=== PATIENT | male | born 1960 | race Hispanic/Latino ===

== ENCOUNTER 2022-04-16 00:21 | Emergency (ER) | payer SELFPAY ==
[2022-04-16] MEDS ORDERED: ONDANSETRON 4 MG/2 ML INJ IV ONE ×2 (01:47→05:28)
[2022-04-16] MEDS ORDERED: SODIUM CHLORIDE 0.9% 1000 ML 1,000 ML IV ONE ×2 (01:47→01:48)
[2022-04-16 03:05] LABS: Basophils % (Auto) 0.5 % (0.0-1.8); Eosinophils # (Auto) 0.1 K/mm3 (0.0-0.4); Eosinophils % (Auto) 1.8 % (0.0-4.3); Hematocrit 36.9 % (35.5-45.6); Hemoglobin 11.9 gm/dl (11.8-15.2); Lymphocytes # (Auto) 1.3 K/mm3 (1.2-5.4); Lymphocytes % (Auto) 29.4 % (13.4-35.0); Mean Corpuscular HGB Conc 32 % (32-34); Mean Corpuscular Volume 85 fl (84-94); Monocytes # (Auto) 0.2 K/mm3 (0.0-0.8); Monocytes % (Auto) 5.3 % (0.0-7.3); Platelet Count 164 K/mm3 (140-440); Red Blood Count 4.33 M/mm3 (3.65-5.03)
[2022-04-16 03:15] LABS: Red Cell Distribution Width 22.1 % (13.2-15.2)
[2022-04-16 03:23] LABS: Alanine Aminotransferase 67 units/L (7-56); Albumin 4.6 g/dL (3.9-5); BUN/Creatinine Ratio 15; Blood Urea Nitrogen 12 mg/dL (9-20); Calcium 8.8 mg/dL (8.4-10.2); Hemolysis Index 79
--- NOTE | 2022-04-16 03:26 | XRay Report ---
ABDOMEN, SINGLE VIEW INDICATION / CLINICAL INFORMATION: N/V. COMPARISON: None available. FINDINGS: The bowel gas pattern is normal. No abnormally dilated loops of bowel are present. Gas is present wit hin the rectum. Small amount of oral contrast is seen throughout the transverse colon, incidentally n oted. Visualized lung bases are clear. No acute osseous abnormality noted. IMPRESSION: No acute finding. Signer Name: Maria A Prince MD Signed: 04/16/2022 3:22 AM Workstation Name: [id number]
[2022-04-16] MEDS ORDERED: MAGNESIUM SULFATE 2 GM/50 ML BAG IV ONE (04:06)
[2022-04-16] MEDS ORDERED: chlordiazePOXIDE 25 MG CAP PO ONE ×2 (04:36→06:00)
--- NOTE | 2022-04-16 05:14 | Emergency Department Report ---
<BROISHANDEIDRE Dinh - Last Filed: 04/16/22 05:58> ED General Adult HPI - General Chief complaint: Alcohol Stated complaint: EMESIS/WITHDRAWALS Time Seen by Provider: 04/16/22 01:46 Source: patient Mode of arrival: Ambulatory Limitations: No Limitations - History of Present Illness Initial comments: This is a 61-year-old homeless male with medical history of hypertension and also alcoholism came in today with concerns of generalized abdominal discomfort and feeling nausea with vomiting for the past 9 days said that he has been v omiting and not being able to keep anything down. Patient stated his last alcohol intake was yesterday. Patient endorsed feeling very anxious. Patient denies any other symptoms. Patient denies fever chill night sweat dizziness blurred vision lightheadedness headache tinnitus ear pain runny nose sore throat loss of taste loss of smell chest pain palpitation short of breath cough diarrhea constipation joint pain muscle pain new rash and heat or cold intolerance. - Related Data Allergies Allergy/AdvReac Type Severity Reaction Status Date / Time No Known Allergies Allergy Unverified 04/16/22 01:05 ED Review of Systems Comment: All other systems reviewed and negative Constitutional: no symptoms reported, see HPI Eyes: as per HPI ENT: as per HPI Respiratory: no symptoms reported, see HPI Cardiovascular: as per HPI Endocrine: no symptoms reported, see HPI Gastrointestinal: as per HPI, abdominal pain, nausea, vomiting. denies: diarrhea, constipation, hematemesis, melena, hematochezia Genitourinary: as per HPI Musculoskeletal: as per HPI Neurological: as per HPI Psychiatric: as per HPI Hematological/Lymphatic: as per HPI ED Past Medical Hx - Past Medical History Previous Medical History?: Yes Hx Hypertension: Yes Additional medical history: Alcoholism - Surgical History Past Surgical History?: No - Social History Smoking Status: Never Smoker Substance Use Type: None ED Physical Exam - General Limitations: No Limitations General appearance: alert, in no apparent distress - Head Head exam: Present: atraumatic, normocephalic, normal inspection - Eye Eye exam: Present: normal appearance, PERRL, EOMI Pupils: Present: normal accommodation - ENT ENT exam: Present: normal exam, mucous membranes moist - Neck Neck exam: Present: normal inspection, full ROM - Respiratory Respiratory exam: Present: normal lung sounds bilaterally. Absent: respiratory distress, wheezes, rales, rhonchi, stridor - Cardiovascular Cardiovascular Exam: Present: regular rate, normal rhythm, normal heart sounds - GI/Abdominal GI/Abdominal exam: Present: soft, normal bowel sounds. Absent: distended, tenderness, guarding, rebound, rigid - Extremities Exam Extremities exam: Present: normal inspection, full ROM, normal capillary refill - Back Exam Back exam: Present: normal inspection, full ROM - Neurological Exam Neurological exam: Present: alert, oriented X3, CN II-XII intact - Psychiatric Psychiatric exam: Present: normal affect, normal mood - Skin Skin exam: Present: warm, normal color ED Course - Reevaluation(s) Reevaluation #1: 04/16/22 05:13 NURSE BROUGHT TO MY ATTENTION THAT MAGNESIUM SULFATE WILL HAVE TO BE RUN OVER 2 HOURS. RIGHT NOW, STILL PENDING CT SCAN TO BE DONE. AFTER MAGNESIUM SULFATE FINISHES, WILL REPEAT EKG TO SEE IF ANY QT/QTC IMPROVEMENT. HAGMA LIKELY ETOH/LACTIC ACID; SHOULD IMPROVE W/ RECHECK. 04/16/22 05:44 WILL SIGN OUT PATIENT CARE TO MY [employer]LE[employer] DR. FROST. 04/16/22 05:58 ED Medical Decision Making - Lab Data Result diagrams: 04/16/22 02:09 04/16/22 02:09 - EKG Data -: EKG Interpreted by Me - EKG Data 04/16/22 05:36 EKG AT 0320: SINUS TACHYCARDIA WITH PROLONGED QT INTERVAL AT QT/QTC 423/571 ED Disposition Clinical Impression: Hypomagnesemia, Alcohol abuse Disposition: 01 HOME / SELF CARE / HOMELESS Condition: Stable Instructions: Alcohol Use Disorder Referrals: GERI FORTUNE MD [Primary Care Provider] - 3-5 Days <LIZ FROST - Last Filed: 04/16/22 07:08> ED General Adult HPI - General PUI?: No ED Review of Systems ROS: Stated complaint: EMESIS/WITHDRAWALS Other details as noted in HPI ED Course Vital Signs 04/16/22 04/16/22 04/16/22 00:22 02:00 02:01 Temperature 98 F Pulse Rate 83 69 Respiratory 18 15 15 Rate Blood Pressure 185/90 136/69 O2 Sat by Pulse 100 98 98 Oximetry 04/16/22 04/16/22 04/16/22 02:15 02:31 02:45 Temperature Pulse Rate 74 69 67 Respiratory 11 L 13 16 Rate Blood Pressure 132/69 158/73 146/47 O2 Sat by Pulse 94 Oximetry 04/16/22 04/16/22 04/16/22 03:01 03:15 03:31 Temperature Pulse Rate 55 L 68 59 L Respiratory 9 L 12 11 L Rate Blood Pressure 136/64 139/67 142/59 O2 Sat by Pulse 97 96 Oximetry 04/16/22 04/16/22 04/16/22 03:45 04:01 04:15 Temperature Pulse Rate 75 69 60 Respiratory 16 14 14 Rate Blood Pressure 135/67 122/55 120/64 O2 Sat by Pulse Oximetry 04/16/22 04/16/22 04/16/22 04:31 04:45 05:01 Temperature Pulse Rate 82 67 85 Respiratory 16 16 14 Rate Blood Pressure 124/53 133/57 126/54 O2 Sat by Pulse 96 Oximetry 04/16/22 04/16/22 04/16/22 05:16 05:31 05:45 Temperature Pulse Rate 63 78 69 Respiratory 12 20 16 Rate Blood Pressure 133/57 126/54 159/75 O2 Sat by Pulse 96 95 Oximetry 04/16/22 04/16/22 06:01 06:15 Temperature Pulse Rate 62 59 L Respiratory 12 10 L Rate Blood Pressure 126/54 127/57 O2 Sat by Pulse 94 97 Oximetry ED Medical Decision Making - Lab Data Result diagrams: 04/16/22 02:09 04/16/22 06:00 - Medical Decision Making handed over fro Dr Gray to check EKGa nd QT interval after magnesiium , repeat EKG showed normal intervals Critical care attestation.: If time is entered above; I have spent that time in minutes in the direct care of this critically ill patient, excluding procedure time. ED Disposition Is pt being admited?: No Does the pt Need Aspirin: No
[2022-04-16] MEDS ORDERED: METOCLOPRAMIDE 10 MG/2 ML INJ ONE (05:27)
[2022-04-16] MEDS ORDERED: ONDANSETRON 4 MG/2 ML INJ ONE (05:27)
[2022-04-16] MEDS ORDERED: METOCLOPRAMIDE 10 MG/2 ML INJ IV ONE (05:28)
--- NOTE | 2022-04-16 05:55 | Cat Scan Report ---
CT abdomen pelvis w con INDICATION / CLINICAL INFORMATION: generalized abd. discomfort n/v. TECHNIQUE: Axial CT imaging of abdomen and pelvis was obtained with 100 cc Omnipaque 350 IV contrast. Coronal an d sagittal reformatted imaging obtained and reviewed. All CT scans at this location are performed us ing CT dose reduction for ALARA by means of automated exposure control. COMPARISON: None available. FINDINGS: CT abdomen with contrast demonstrates prominent hepatic steatosis. The liver is otherwise normal. Spl een, pancreas, kidneys, and adrenal glands all appear unremarkable. Gallbladder is present. No obviou s gallbladder pathology. No biliary dilatation. Abdominal aorta contains small amount of calcified pl aque but is otherwise normal. CT pelvis with contrast demonstrates mildly enlarged prostate gland. No pelvic mass, free fluid, or f ocal inflammatory process is noted. Normal appendix is present in the right lower quadrant. There is oral contrast throughout the transverse colon. There is suggestion of mild colitis throughout the delfin cending colon and splenic flexure. The remainder of the GI tract is unremarkable. Visualized lung bases show no acute pulmonary or pleural disease. Review of skeletal structures does not demonstrate any acute osseous abnormality. IMPRESSION: 1. Questionable mild colitis of the descending colon. 2. Hepatic steatosis. Signer Name: Maria A Prince MD Signed: 04/16/2022 5:51 AM Workstation Name: [id number]
[2022-04-16 06:36] LABS: BUN/Creatinine Ratio 14; Blood Urea Nitrogen 11 mg/dL (9-20); Calcium 8.8 mg/dL (8.4-10.2); Hemolysis Index 67
[2022-04-16 07:45] VITALS: BP 138/78
== END 2022-04-16 07:44 | disposition home or self-care (01) ==
LOC: ED 00:21
DX: E83.42 Hypomagnesemia (principal); F10.10 Alcohol abuse, uncomplicated; I10 Essential (primary) hypertension; Y90.9 Presence of alcohol in blood, level not specified
CPT/HCPCS: 36415; 74018; 74177; 80048; 80053; 82140; 83690; 83735; 85025; 93005; 96361; 96365; 96366; 96375; 96376; 99284; J2405; J2765; J3475; J7030; Q9967; 80320; G0480